=== PATIENT | male | born 1995 | race Caucasian/White ===

== ENCOUNTER 2024-08-23 00:47 | Inpatient (IN) | payer OTHER, SELFPAY ==
[2024-08-23 01:18] VITALS: BMI 37.2
[2024-08-23 01:54] VITALS: BP 124/71; PULSE 62; RESP 16; TEMP 36.5; O2SAT 97
--- NOTE | 2024-08-23 06:41 | PC.ADMIT ---
Patient is a 28 year old single Chinese speaking male admitted as a Section 12B at 0115 to M5 and placed on 5 minute safety checks. Patient was brought by EMS to [facility] ED when he was found with a rope and expressed a plan to hang himself. Apparently the mother of the patient's 9 month old son recently told him that she does not love him anymore. According to the patient's intake, the patient does not feel that his family validates or listens to his problems. He has a history of trying to hang himself three times and has been struggling with depression x 8 years. Although he has had a therapist in the past, he states he does not currently have a therapist. Patient also denied any current medications; he does not have a psychiatric provider or a PCP. During the admission process patient stated Being in the hospital makes me feel more suicidal, it doesn't really help me to be here. Patient said he did not have a rating on his depression or anxiety and denied any current SI, HI, AH or VH. He was cooperative with answering questions and cooperative with skin check, which was unremarkable. Patient has no history of substance use and does not smoke cigarettes. Patient given a tour of the unit, visitation policy explained, patient able to go to bed and sleep without any medications.
[2024-08-23 08:00] VITALS: BP 145/90; PULSE 71; RESP 18; TEMP 36.3; O2SAT 97
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
[2024-08-23 20:00] VITALS: BP 135/77; PULSE 87; RESP 16; TEMP 36.4; O2SAT 96
[2024-08-24 07:00] VITALS: BMI 37.8
[2024-08-24 08:00] VITALS: BP 130/89; PULSE 70; TEMP 36.4; O2SAT 96
[2024-08-24 09:12] LABS: Alanine Aminotransferase 61 U/L (0-40); Albumin Level 4.2 g/dL (3.5-5.0); Alkaline Phosphatase 66 U/L (39-117); Anion Gap 11 (12-20); Aspartate Amino Transferase 25 U/L (5-37); Bilirubin Total 0.4 mg/dL (0.0-1.0); Blood Urea Nitrogen 13 mg/dL (9-16); Calcium 9.5 mg/dL (8.4-10.2); Carbon Dioxide 26 mmol/L (22-29); Chloride 108 mmol/L (96-108); Cholesterol 271 mg/dL (<200); Creatinine Clr Calc Pharmacy 137.2; Estimated Glomerular Filt Rate > 60; Glucose Fasting 100 mg/dL (60-99); HDL Cholesterol 37 mg/dL (>40); LDL Cholesterol Calculated 192 mg/dL (<100); Potassium 4.3 mmol/L (3.3-5.1); Sodium 141 mmol/L (135-145); Total Protein 7.1 g/dL (6.5-8.0); Triglycerides 214 mg/dL (<150)
[2024-08-24 09:30] LABS: Thyroid Stimulating Hormone 1.08 uIU/mL (0.32-4.0)
--- NOTE | 2024-08-24 15:59 | P.PNPSI_ITS ---
Subjective Subjective Date of Service: 08/24/24 Reason For Visit: Unspecified Depression Disorder Interim History: met with pt; discussed with team pt upset; says no one cares about him or his feelings; says he's suicidal and called mom and partner to say the same. Pt very upset that his belongings did not get inventoried by specific staff, feeling the reason is because he's not cared about. [employer] Emergency Services Dispatcher tried to discuss feelings, hx of feeling rejected...Pt refuses to talk more; refuses meds; refuses to sign in. Mental Status Exam Mental Status Exam Narrative: Pt is alert and oriented; behavior is irritable, reactive, isolative; dressed in hospital attire with unkempt hair, hernandez but adequate hygiene; mood is described as depressed... Anxious and affect congruent, somewhat downcast; eye contact avoidant; Speech is normal rate, volume and prosody and not pressured; psychomotor retardation present; thought process is circumstantial but logical and organized; Thought content is self-deprecating thoughts, feeling neglected by family; otherwise pertinent to relevant topics and without any delusional content, paranoid ideations or grandiosity; chronic intermittent SI; currently no plans or intent; no HI. No AVH and There is no evidence of perceptual disturbance. Patients insight and judgment impaired Diagnostics Vital Signs (24Hr): Vital Signs - 24 hr 08/23/24 20:00 08/24/24 08:00 Temperature 97.6 F 97.6 F Pulse Rate 87 70 Respiratory Rate 16 Blood Pressure 135/77 130/89 Pulse Oximetry 96 96 Oxygen Delivery Method Room Air Room Air BMI result Body Mass Index 37.8 Labs 08/24/24 08:24 Labs: Laboratory Results - last 48 hr 08/24/24 08:24 Sodium 141 Potassium 4.3 Chloride 108 Carbon Dioxide 26 Anion Gap 11 L BUN 13 Creatinine 0.93 Estim Creat Clear Calc 137.2 Estimated GFR > 60 Fasting Glucose 100 H Calcium 9.5 Total Bilirubin 0.4 AST 25 ALT 61 H Alkaline Phosphatase 66 Total Protein 7.1 Albumin 4.2 Triglycerides 214 H Cholesterol 271 H LDL Cholesterol, Calc 192 H HDL Cholesterol 37 L TSH 1.08 Free T4 1.00 Medications Medications Current Medications Acetaminophen (Acetaminophen 325 Mg Tablet) 650 mg PO Q6H PRN PRN Reason: Headache/Pain Mild Scale (1-3) Al Hydroxide/Mg Hydroxide (Magnesium Hydrox/Alum Hydrox 30 Ml Oral.Susp) 30 ml PO Q6H PRN PRN Reason: Heartburn/Nausea Hydroxyzine HCl (Hydroxyzine Hcl 25 Mg Tablet) 25 mg PO Q6H PRN PRN Reason: Anxiety Lorazepam (Lorazepam 1 Mg Tablet) 1 mg PO Q6H PRN PRN Reason: anxiety/restlessness Magnesium Hydroxide (Milk Of Magnesia 30 Ml Oral.Susp) 30 ml PO DAILY PRN PRN Reason: Constipation Trazodone HCl (Trazodone Hcl 50 Mg Tablet) 50 mg PO BEDTIME MRX1 PRN PRN Reason: Insomnia Allergies Allergies Allergy/AdvReac Type Severity Reaction Status Date / Time No Known Allergies Allergy Verified 08/23/24 00:30 Assessment & Plan Assessment & Plan (1) MDD (major depressive disorder), recurrent severe, without psychosis: Status: Acute Code(s): F33.2 - Major depressive disorder, recurrent severe without psychotic features (2) PTSD (post-traumatic stress disorder): Status: Acute Code(s): F43.10 - Post-traumatic stress disorder, unspecified (3) Borderline personality disorder: Status: Suspected Code(s): F60.3 - Borderline personality disorder Plan Patient is a 28-year-old male, history of depression and anxiety with chronic SI, PTSD, who presents for worsening depression and SI in the face of relational strife. Patient and his partner have a 9-month-old son. Patient has been feeling marginalized and ignored by family, parents and his for quite some time. He feels that they do not have time to listen for him. Patient shares that his role growing up was to be a listening sound board for his mother; now he is so embroiled in his own mental health issues he can not be a good emotional support to his partner and thus sees no reason to live. Patient reports that over the past few weeks, his partner Neal has told him that she can not be his therapist that he needs to get his own help with his mental health. Patient felt pushed away by this and stopped going to the house and has been living in and out of his car or sometimes staying at his parent's house. He feels that whenever he tries to explain himself to his parents they just talk about their mental health problems. Patient reports ongoing thoughts of ending his life which have increase this past month. This past week he decided to end his life by hanging himself but wanted to wait until his 9-month-old son graduated from swimming class, this coming Wednesday. Patient told both his partner and his parents this plan. However past day he was feeling increasingly emotionally reactive and decided to end his life early on. He told his partner and his parents that it was going to hang himself and they knew where he was going. Patient went to a certain spot where he has gone before but did know how to tie the knot; he called neal to talk with her while he was looking up how to tie a knot and the police showed up. Patient feels that therapy has not been very helpful though he does not go consistently; has never tried any medications. Denies any history of manic type episodes or behaviors; denies any AVH; denies any substance abuse Formulation/clinical reasoning: Patient has history of depression anxiety; also sounds like borderline traits. Ironically he is frustrated that his therapist listens to him but does not offer enough specifics on coping skills. Patient initially ambivalent about medication however discussed medication management for symptoms in detail and patient feels that he probably does need them. Hospital course: 08/24 pt emotionally reactive; insisting no one cares or is willing to listen to him; demonstrating borderline traits; regressed. Says he's suicidal and called mom and partner to tell them so. refuses meds or to sign in. Does not want to talk w/ publicity writer or attend groups. Plan 12B Q 15 minute checks Patient considering medications; so far refuses Gather collateral Patient educated on: diagnosis, medication risk/benefits and therapeutic strategies Informed Consent: understands, does not understand and further education needed Reason for continued inpatient stay Substantial Risk for: rapid decompensation Time Spent With Patient Time: Total time managing care of this patient today ____ minutes.
[2024-08-24 20:00] VITALS: BP 132/72; PULSE 85; RESP 18; TEMP 36.5; O2SAT 95
[2024-08-25 08:00] VITALS: BP 128/76; PULSE 92; RESP 16; TEMP 36.6; O2SAT 98
[2024-08-25 20:00] VITALS: BP 136/80; PULSE 86; RESP 16; TEMP 36.9; O2SAT 97
--- NOTE | 2024-08-25 23:03 | P.PNPSI_ITS ---
Subjective Subjective Date of Service: 08/25/24 Reason For Visit: Unspecified Depression Disorder Interim History: met with pt; discussed with team pt remains emotionally distraught but now willing to engage. Engaged in DBT/CBT. Pt volunteers that knows he's stuck in cycle of being a victim, blaming others for his problems...says he learned as a kid that only if he exaggerates his feelings will others listen to him. Pt says he does not want to , has no plans to hurt himself, but he says such things to elicit a response. Pt says he intellectually knows these things, but cannot seem to stop himself from feeling this way. Diagnostics Vital Signs (24Hr): Vital Signs - 24 hr 08/25/24 08:00 Temperature 98 F Pulse Rate 92 Respiratory Rate 16 Blood Pressure 128/76 Pulse Oximetry 98 BMI result Body Mass Index 37.8 Labs 08/24/24 08:24 Labs: Laboratory Results - last 48 hr 08/24/24 08:24 Sodium 141 Potassium 4.3 Chloride 108 Carbon Dioxide 26 Anion Gap 11 L BUN 13 Creatinine 0.93 Estim Creat Clear Calc 137.2 Estimated GFR > 60 Fasting Glucose 100 H Calcium 9.5 Total Bilirubin 0.4 AST 25 ALT 61 H Alkaline Phosphatase 66 Total Protein 7.1 Albumin 4.2 Triglycerides 214 H Cholesterol 271 H LDL Cholesterol, Calc 192 H HDL Cholesterol 37 L TSH 1.08 Free T4 1.00 Medications Medications Current Medications Acetaminophen (Acetaminophen 325 Mg Tablet) 650 mg PO Q6H PRN PRN Reason: Headache/Pain Mild Scale (1-3) Al Hydroxide/Mg Hydroxide (Magnesium Hydrox/Alum Hydrox 30 Ml Oral.Susp) 30 ml PO Q6H PRN PRN Reason: Heartburn/Nausea Hydroxyzine HCl (Hydroxyzine Hcl 25 Mg Tablet) 25 mg PO Q6H PRN PRN Reason: Anxiety Magnesium Hydroxide (Milk Of Magnesia 30 Ml Oral.Susp) 30 ml PO DAILY PRN PRN Reason: Constipation Trazodone HCl (Trazodone Hcl 50 Mg Tablet) 50 mg PO BEDTIME MRX1 PRN PRN Reason: Insomnia Allergies Allergies Allergy/AdvReac Type Severity Reaction Status Date / Time No Known Allergies Allergy Verified 08/23/24 00:30 Assessment & Plan Assessment & Plan (1) MDD (major depressive disorder), recurrent severe, without psychosis: Status: Acute Code(s): F33.2 - Major depressive disorder, recurrent severe without psychotic features (2) PTSD (post-traumatic stress disorder): Status: Acute Code(s): F43.10 - Post-traumatic stress disorder, unspecified (3) Borderline personality disorder: Status: Suspected Code(s): F60.3 - Borderline personality disorder Plan Patient is a 28-year-old male, history of depression and anxiety with chronic SI, PTSD, who presents for worsening depression and SI in the face of relational strife. Patient and his partner have a 9-month-old son. Patient has been feeling marginalized and ignored by family, parents and his for quite some time. He feels that they do not have time to listen for him. Patient shares that his role growing up was to be a listening sound board for his mother; now he is so embroiled in his own mental health issues he can not be a good emotional support to his partner and thus sees no reason to live. Patient reports that over the past few weeks, his partner Neal has told him that she can not be his therapist that he needs to get his own help with his mental health. Patient felt pushed away by this and stopped going to the house and has been living in and out of his car or sometimes staying at his parent's house. He feels that whenever he tries to explain himself to his parents they just talk about their mental health problems. Patient reports ongoing thoughts of ending his life which have increase this past month. This past week he decided to end his life by hanging himself but wanted to wait until his 9-month-old son graduated from swimming class, this coming Wednesday. Patient told both his partner and his parents this plan. However past day he was feeling increasingly emotionally reactive and decided to end his life early on. He told his partner and his parents that it was going to hang himself and they knew where he was going. Patient went to a certain spot where he has gone before but did know how to tie the knot; he called neal to talk with her while he was looking up how to tie a knot and the police showed up. Patient feels that therapy has not been very helpful though he does not go consistently; has never tried any medications. Denies any history of manic type episodes or behaviors; denies any AVH; denies any substance abuse Formulation/clinical reasoning: Patient has history of depression anxiety; also sounds like borderline traits. Ironically he is frustrated that his therapist listens to him but does not offer enough specifics on coping skills. Patient initially ambivalent about medication however discussed medication management for symptoms in detail and patient feels that he probably does need them. Hospital course: 08/24 pt emotionally reactive; insisting no one cares or is willing to listen to him; demonstrating borderline traits; regressed. Says he's suicidal and called mom and partner to tell them so. refuses meds or to sign in. Does not want to talk w/ commercial lines underwriter or attend groups. 08/25 pt remains emotionally distraught but now willing to engage. Engaged in DBT/CBT. Pt volunteers that knows he's stuck in cycle of being a victim, blaming others for his problems...says he learned as a kid that only if he exaggerates his feelings will others listen to him. Pt says he does not want to , has no plans to hurt himself, but he says such things to elicit a response. Pt says he intellectually knows these things, but cannot seem to stop himself from feeling this way. Says it' sbeen this way for him since childhood; pt shared about childhood, relationships, other hx -reviewed traits of BPD most of which resonated with patient -still does not want medications, though willing to discuss Plan 12B Q 15 minute checks Patient considering medications; so far refuses Gather collateral Patient educated on: diagnosis, medication risk/benefits and therapeutic strategies Informed Consent: understands Reason for continued inpatient stay Substantial Risk for: rapid decompensation Time Spent With Patient Time: Total time managing care of this patient today ____ minutes.
[2024-08-26 08:00] VITALS: BP 125/82; PULSE 86; RESP 16; TEMP 36.9; O2SAT 96
--- NOTE | 2024-08-26 09:04 | P.PNPSI_ITS ---
Subjective Subjective Date of Service: 08/26/24 Reason For Visit: Unspecified Depression Disorder Interim History: met with patient; discussed with team elisabet; thankful for exercise yesterday and pt reviewed DSM criteria for borderline personality disorder saying he resonates with all symptoms. He shares his plan to move to [place]; he feels he cannot progress if he's around his parents and Partner, feeling too hurt and too triggered by them. Window Tinter discussed that his problems will follow him which he says he understands. Declines medication. Wants to DC wednesday. Denies any SI. Mental Status Exam Mental Status Exam Narrative: Pt is alert and oriented; behavior is cooperative, calm; dressed in hospital attire with unkempt hair, hernandez but adequate hygiene; mood is described as depressed and affect congruent, somewhat downcast; eye contact adequate; Speech is normal rate, volume and prosody and not pressured; some psychomotor retardation present; thought process is circumstantial but logical and organized; Thought content on feeling neglected by family; otherwise pertinent to relevant topics and without any delusional content, paranoid ideations or grandiosity; denies any SI/HI. No AVH and There is no evidence of perceptual disturbance. Patients insight and judgment impaired but adequate. Diagnostics Vital Signs (24Hr): Vital Signs - 24 hr 08/25/24 20:00 08/26/24 08:00 Temperature 98.5 F 98.5 F Pulse Rate 86 86 Respiratory Rate 16 16 Blood Pressure 136/80 125/82 Pulse Oximetry 97 96 Oxygen Delivery Method Room Air Room Air BMI result Body Mass Index 37.8 Labs 08/24/24 08:24 Labs: Laboratory Results - last 48 hr 08/24/24 08:24 Sodium 141 Potassium 4.3 Chloride 108 Carbon Dioxide 26 Anion Gap 11 L BUN 13 Creatinine 0.93 Estim Creat Clear Calc 137.2 Estimated GFR > 60 Fasting Glucose 100 H Calcium 9.5 Total Bilirubin 0.4 AST 25 ALT 61 H Alkaline Phosphatase 66 Total Protein 7.1 Albumin 4.2 Triglycerides 214 H Cholesterol 271 H LDL Cholesterol, Calc 192 H HDL Cholesterol 37 L TSH 1.08 Free T4 1.00 Medications Medications Current Medications Acetaminophen (Acetaminophen 325 Mg Tablet) 650 mg PO Q6H PRN PRN Reason: Headache/Pain Mild Scale (1-3) Al Hydroxide/Mg Hydroxide (Magnesium Hydrox/Alum Hydrox 30 Ml Oral.Susp) 30 ml PO Q6H PRN PRN Reason: Heartburn/Nausea Hydroxyzine HCl (Hydroxyzine Hcl 25 Mg Tablet) 25 mg PO Q6H PRN PRN Reason: Anxiety Magnesium Hydroxide (Milk Of Magnesia 30 Ml Oral.Susp) 30 ml PO DAILY PRN PRN Reason: Constipation Trazodone HCl (Trazodone Hcl 50 Mg Tablet) 50 mg PO BEDTIME MRX1 PRN PRN Reason: Insomnia Allergies Allergies Allergy/AdvReac Type Severity Reaction Status Date / Time No Known Allergies Allergy Verified 08/23/24 00:30 Assessment & Plan Assessment & Plan (1) MDD (major depressive disorder), recurrent severe, without psychosis: Status: Acute Code(s): F33.2 - Major depressive disorder, recurrent severe without psychotic features (2) Borderline personality disorder: Status: Suspected Code(s): F60.3 - Borderline personality disorder (3) PTSD (post-traumatic stress disorder): Status: Acute Code(s): F43.10 - Post-traumatic stress disorder, unspecified Plan Patient is a 28-year-old male, history of depression and anxiety with chronic SI, PTSD, who presents for worsening depression and SI in the face of relational strife. Patient and his partner have a 9-month-old son. Patient has been feeling marginalized and ignored by family, parents and his for quite some time. He feels that they do not have time to listen for him. Patient shares that his role growing up was to be a listening sound board for his mother; now he is so embroiled in his own mental health issues he can not be a good emotional support to his partner and thus sees no reason to live. Patient reports that over the past few weeks, his partner Neal has told him that she can not be his therapist that he needs to get his own help with his mental health. Patient felt pushed away by this and stopped going to the house and has been living in and out of his car or sometimes staying at his parent's house. He feels that whenever he tries to explain himself to his parents they just talk about their mental health problems. Patient reports ongoing thoughts of ending his life which have increase this past month. This past week he decided to end his life by hanging himself but wanted to wait until his 9-month-old son graduated from swimming class, this coming Wednesday. Patient told both his partner and his parents this plan. However past day he was feeling increasingly emotionally reactive and decided to end his life early on. He told his partner and his parents that it was going to hang himself and they knew where he was going. Patient went to a certain spot where he has gone before but did know how to tie the knot; he called neal to talk with her while he was looking up how to tie a knot and the police showed up. Patient feels that therapy has not been very helpful though he does not go consistently; has never tried any medications. Denies any history of manic type episodes or behaviors; denies any AVH; denies any substance abuse Formulation/clinical reasoning: Patient has history of depression anxiety; also sounds like borderline traits. Ironically he is frustrated that his therapist listens to him but does not offer enough specifics on coping skills. Patient initially ambivalent about medication however discussed medication management for symptoms in detail and patient feels that he probably does need them. Hospital course: 08/24 pt emotionally reactive; insisting no one cares or is willing to listen to him; demonstrating borderline traits; regressed. Says he's suicidal and called mom and partner to tell them so. refuses meds or to sign in. Does not want to talk w/ administrative underwriter or attend groups. 08/25 pt remains emotionally distraught but now willing to engage. Engaged in DBT/CBT. Pt volunteers that knows he's stuck in cycle of being a victim, blaming others for his problems...says he learned as a kid that only if he exaggerates his feelings will others listen to him. Pt says he does not want to , has no plans to hurt himself, but he says such things to elicit a response. Pt says he intellectually knows these things, but cannot seem to stop himself from feeling this way. Says it' sbeen this way for him since childhood; pt shared about childhood, relationships, other hx -reviewed traits of BPD most of which resonated with patient -still does not want medications, though willing to discuss 08/26 depressed but no SI which remains resolved (he explains he was never going to hurt himself but just said so to get reaction). Pt understands his illness and wants to get DBT therapist when he moves to [place] (his new plan). -does not want meds; asking for Discharge. Will continue to monitor and as remains stable will honor dc request Plan 12B Q 15 minute checks Patient considering medications; so far refuses Gather collateral Patient educated on: diagnosis, medication risk/benefits and therapeutic strategies Informed Consent: understands Reason for continued inpatient stay Substantial Risk for: rapid decompensation Time Spent With Patient Time: Total time managing care of this patient today ____ minutes.
[2024-08-26 20:00] VITALS: BP 140/67; PULSE 111; RESP 16; TEMP 37.1
[2024-08-26 22:46] VITALS: TEMP 36.6
[2024-08-27 07:46] VITALS: BP 139/69; PULSE 93; RESP 16; TEMP 36.6; O2SAT 95
--- NOTE | 2024-08-27 10:14 | P.PNPSI_ITS ---
Subjective Subjective Date of Service: 08/27/24 Reason For Visit: Unspecified Depression Disorder Interim History: Met with patient; discussed with team Patient overall feeling better. Little more optimistic. Patient had good discussion with his mother about his diagnosis and found her very sympathetic and supportive. Asked if chief underwriter would talk with his mother. Aircraft Maintenance Instructor did speak with his mother who was grateful for help received and wanted to discuss aftercare. Patient no longer convinced he is going to [place]; says he wants to remain on the unit only to get help with aftercare set up, specifically DBT but finds the unit acuity to be challenging. Will consider whether not to sign in. Denies any SI Mental Status Exam Mental Status Exam Narrative: Pt is alert and oriented; behavior is cooperative, calm; dressed in hospital attire with unkempt hair, hernandez but adequate hygiene; mood is described as okay and affect congruent, a little brighter; eye contact adequate; Speech is normal rate, volume and prosody and not pressured; no psychomotor retardation present; thought process is circumstantial but logical and organized; Thought content on dealing with symptoms, treatment, working on his issue; otherwise pertinent to relevant topics and without any delusional content, paranoid ideations or grandiosity; denies any SI/HI. No AVH and There is no evidence of perceptual disturbance. Patients insight and judgment improved; fair and adequate. Diagnostics Vital Signs (24Hr): Vital Signs - 24 hr 08/26/24 20:00 08/26/24 22:46 08/27/24 07:46 Temperature 98.8 F 97.9 F 97.9 F Pulse Rate 111 H 93 Respiratory Rate 16 16 Blood Pressure 140/67 H 139/69 Pulse Oximetry 95 Oxygen Delivery Method Room Air Room Air BMI result Body Mass Index 37.8 Labs 08/24/24 08:24 Medications Medications Current Medications Acetaminophen (Acetaminophen 325 Mg Tablet) 650 mg PO Q6H PRN PRN Reason: Headache/Pain Mild Scale (1-3) Al Hydroxide/Mg Hydroxide (Magnesium Hydrox/Alum Hydrox 30 Ml Oral.Susp) 30 ml PO Q6H PRN PRN Reason: Heartburn/Nausea Hydroxyzine HCl (Hydroxyzine Hcl 25 Mg Tablet) 25 mg PO Q6H PRN PRN Reason: Anxiety Magnesium Hydroxide (Milk Of Magnesia 30 Ml Oral.Susp) 30 ml PO DAILY PRN PRN Reason: Constipation Trazodone HCl (Trazodone Hcl 50 Mg Tablet) 50 mg PO BEDTIME MRX1 PRN PRN Reason: Insomnia Allergies Allergies Allergy/AdvReac Type Severity Reaction Status Date / Time No Known Allergies Allergy Verified 08/23/24 00:30 Assessment & Plan Assessment & Plan (1) MDD (major depressive disorder), recurrent severe, without psychosis: Status: Acute Code(s): F33.2 - Major depressive disorder, recurrent severe without psychotic features (2) Borderline personality disorder: Status: Suspected Code(s): F60.3 - Borderline personality disorder (3) PTSD (post-traumatic stress disorder): Status: Acute Code(s): F43.10 - Post-traumatic stress disorder, unspecified Plan Patient is a 28-year-old male, history of depression and anxiety with chronic SI, PTSD, who presents for worsening depression and SI in the face of relational strife. Patient and his partner have a 9-month-old son. Patient has been feeling marginalized and ignored by family, parents and his for quite some time. He feels that they do not have time to listen for him. Patient shares that his role growing up was to be a listening sound board for his mother; now he is so embroiled in his own mental health issues he can not be a good emotional support to his partner and thus sees no reason to live. Patient reports that over the past few weeks, his partner Neal has told him that she can not be his therapist that he needs to get his own help with his mental health. Patient felt pushed away by this and stopped going to the house and has been living in and out of his car or sometimes staying at his parent's house. He feels that whenever he tries to explain himself to his parents they just talk about their mental health problems. Patient reports ongoing thoughts of ending his life which have increase this past month. This past week he decided to end his life by hanging himself but wanted to wait until his 9-month-old son graduated from [employer] class, this coming Wednesday. Patient told both his partner and his parents this plan. However past day he was feeling increasingly emotionally reactive and decided to end his life early on. He told his partner and his parents that it was going to hang himself and they knew where he was going. Patient went to a certain spot where he has gone before but did know how to tie the knot; he called neal to talk with her while he was looking up how to tie a knot and the police showed up. Patient feels that therapy has not been very helpful though he does not go consistently; has never tried any medications. Denies any history of manic type episodes or behaviors; denies any AVH; denies any substance abuse Formulation/clinical reasoning: Patient has history of depression anxiety; also sounds like borderline traits. Ironically he is frustrated that his therapist listens to him but does not offer enough specifics on coping skills. Patient initially ambivalent about medication however discussed medication management for symptoms in detail and patient feels that he probably does need them. Hospital course: 08/24 pt emotionally reactive; insisting no one cares or is willing to listen to him; demonstrating borderline traits; regressed. Says he's suicidal and called mom and partner to tell them so. refuses meds or to sign in. Does not want to talk w/ chief underwriter or attend groups. 08/25 pt remains emotionally distraught but now willing to engage. Engaged in DBT/CBT. Pt volunteers that knows he's stuck in cycle of being a victim, blaming others for his problems...says he learned as a kid that only if he exaggerates his feelings will others listen to him. Pt says he does not want to , has no plans to hurt himself, but he says such things to elicit a response. Pt says he intellectually knows these things, but cannot seem to stop himself from feeling this way. Says it' sbeen this way for him since childhood; pt shared about childhood, relationships, other hx -reviewed traits of BPD most of which resonated with patient -still does not want medications, though willing to discuss 08/26 depressed but no SI which remains resolved (he explains he was never going to hurt himself but just said so to get reaction). Pt understands his illness and wants to get DBT therapist when he moves to [place] (his new plan). -does not want meds; asking for Discharge. Will continue to monitor and as remains stable will honor dc request 08/27 Patient overall feeling better. Little more optimistic. Patient had good discussion with his mother about his diagnosis and found her very sympathetic and supportive. Asked if chief underwriter would talk with his mother. Aircraft Maintenance Instructor did speak with his mother who was grateful for help received and wanted to discuss aftercare. Patient no longer convinced he is going to [place]; says he wants to remain on the unit only to get help with aftercare set up, specifically DBT but finds the unit acuity to be challenging. Will consider whether not to sign in. Denies any SI -also interested in IOP Plan 12B Q 15 minute checks Patient considering medications; so far refuses Gather collateral Patient educated on: diagnosis and therapeutic strategies Informed Consent: understands Reason for continued inpatient stay Substantial Risk for: stable for discharge Time Spent With Patient Time: Total time managing care of this patient today ____ minutes.
[2024-08-27 20:00] VITALS: BP 142/80; PULSE 76; RESP 16; TEMP 37.7; O2SAT 97
[2024-08-27 20:25] LABS: Influenza A PCR NEGATIVE (Negative); Influenza B PCR NEGATIVE (Negative); Resp Syncy Virus RNA Qual PCR NEGATIVE (Negative); SARS COV2 PCR INHOUSE NEGATIVE (Negative)
--- NOTE | 2024-08-27 23:35 | PC.NURSE ---
Pt c/o fever and cough, temperature reads 101, P-76, BP- 142/80. COVID and FLU test done and result was negative. Temp rechecked @ 2300 reads 98.8 and he verbalized reduced cough.
[2024-08-28 08:00] VITALS: BP 116/51; PULSE 94; RESP 16; TEMP 36.5; O2SAT 99
--- NOTE | 2024-08-28 09:08 | PM.PSYDC ---
DS: Providers Provider Date of Service: 08/28/24 Date of admission: 08/23/24 00:47 Date of discharge: 08/28/24 Primary care physician: Karol Mckeon DO Attending physician on admission: Roc Holloway Consults: 08/23/24 00:30 Consult to Hospitalist Routine Comment: Consulting Provider: Hospitalist Reason For Exam: adm physical Attending physician on discharge: Roc Holloway DS: Diagnosis Discharge Diagnosis (1) MDD (major depressive disorder), recurrent severe, without psychosis: Status: Acute (2) Borderline personality disorder: Status: Suspected (3) PTSD (post-traumatic stress disorder): Status: Acute DS: Medications Discharge Medications Home Medications: Home Medications ?Medication ?Instructions ?Recorded ?Confirmed No Known Home Meds 08/23/24 08/23/24 Mental Status Exam Mental Status Exam Narrative: Pt is alert and oriented; behavior is cooperative, calm; unkempt hair, hernandez but adequate hygiene; mood is described as okay and affect congruent, brighter; eye contact adequate; Speech is normal rate, volume and prosody and not pressured; no psychomotor retardation present; thought process is circumstantial but logical and organized; Thought content on dealing with symptoms, treatment, working on his issues; otherwise pertinent to relevant topics and without any delusional content, paranoid ideations or grandiosity; denies any SI/HI. No AVH and There is no evidence of perceptual disturbance. Patients insight and judgment improved; fair and adequate. Data Data Completed and Pending Completed studies during hospitalization [Text1]: 08/24/24 08/27/24 08:24 19:20 Sodium 141 Potassium 4.3 Chloride 108 Carbon Dioxide 26 Anion Gap 11 L BUN 13 Creatinine 0.93 Estim Creat Clear Calc 137.2 Estimated GFR > 60 Fasting Glucose 100 H Calcium 9.5 Total Bilirubin 0.4 AST 25 ALT 61 H Alkaline Phosphatase 66 Total Protein 7.1 Albumin 4.2 Triglycerides 214 H Cholesterol 271 H LDL Cholesterol, Calc 192 H HDL Cholesterol 37 L TSH 1.08 Free T4 1.00 Influenza Type A (PCR) NEGATIVE Influenza Type B (PCR) NEGATIVE RSV RNA Qual (PCR) NEGATIVE SARS-CoV-2 RNA (RT-PCR) NEGATIVE DS: Summary Hospital Course Hospital Course: Patient is a 28-year-old male, history of depression and anxiety with chronic SI, PTSD, who presents for worsening depression and SI in the face of relational strife. Patient and his partner have a 9-month-old son. Patient has been feeling marginalized and ignored by family, parents and his for quite some time. He feels that they do not have time to listen for him. Patient shares that his role growing up was to be a listening sound board for his mother; now he is so embroiled in his own mental health issues he can not be a good emotional support to his partner and thus sees no reason to live. Patient reports that over the past few weeks, his partner Neal has told him that she can not be his therapist that he needs to get his own help with his mental health. Patient felt pushed away by this and stopped going to the house and has been living in and out of his car or sometimes staying at his parent's house. He feels that whenever he tries to explain himself to his parents they just talk about their mental health problems. Patient reports ongoing thoughts of ending his life which have increase this past month. This past week he decided to end his life by hanging himself but wanted to wait until his 9-month-old son graduated from [employer] class, this coming Wednesday. Patient told both his partner and his parents this plan. However past day he was feeling increasingly emotionally reactive and decided to end his life early on. He told his partner and his parents that it was going to hang himself and they knew where he was going. Patient went to a certain spot where he has gone before but did know how to tie the knot; he called neal to talk with her while he was looking up how to tie a knot and the police showed up. Patient feels that therapy has not been very helpful though he does not go consistently; has never tried any medications. Denies any history of manic type episodes or behaviors; denies any AVH; denies any substance abuse Formulation/clinical reasoning: Patient has history of depression anxiety; also sounds like borderline traits. Ironically he is frustrated that his therapist listens to him but does not offer enough specifics on coping skills. Patient initially ambivalent about medication however discussed medication management for symptoms in detail and patient feels that he probably does need them. Hospital course: 08/24 pt emotionally reactive; insisting no one cares or is willing to listen to him; demonstrating borderline traits; regressed. Says he's suicidal and called mom and partner to tell them so. refuses meds or to sign in. Does not want to talk w/ process description writer or attend groups. 08/25 pt remains emotionally distraught but now willing to engage. Engaged in DBT/CBT. Pt volunteers that knows he's stuck in cycle of being a victim, blaming others for his problems...says he learned as a kid that only if he exaggerates his feelings will others listen to him. Pt says he does not want to , has no plans to hurt himself, but he says such things to elicit a response. Pt says he intellectually knows these things, but cannot seem to stop himself from feeling this way. Says it' sbeen this way for him since childhood; pt shared about childhood, relationships, other hx -reviewed traits of BPD most of which resonated with patient -still does not want medications, though willing to discuss 08/26 depressed but no SI which remains resolved (he explains he was never going to hurt himself but just said so to get reaction). Pt understands his illness and wants to get DBT therapist when he moves to [place] (his new plan). -does not want meds; asking for Discharge. Will continue to monitor and as remains stable will honor dc request 08/27 Patient overall feeling better. Little more optimistic. Patient had good discussion with his mother about his diagnosis and found her very sympathetic and supportive. Asked if process description writer would talk with his mother. Advertising Sales Executive did speak with his mother who was grateful for help received and wanted to discuss aftercare. Patient no longer convinced he is going to [place]; says he wants to remain on the unit only to get help with aftercare set up, specifically DBT but finds the unit acuity to be challenging. Will consider whether not to sign in. Denies any SI -also interested in IOP Patient is doing better and at or above baseline. Patient's insight and judgment have significantly improved and he feels some relief from having a way to talk about his struggles. Patient is also found his mother very supportive. Patient has been on a [address]; the time is up and patient wants to discharge. Patient remains depressed but much less so and he is more hopeful; his affect is noticeably brighter, smiling at times, laughing at times and now social in the milieu with peers. He has remained without any actual SI and has explained that he was never going to hurt himself and has no history of self-harm. He is returning home to live with his parents. Although patient declined medication trials, he plans to continue with his outpatient therapist; patient is eager to add DBT therapy to his treatment and says he will pursue on his own. Patient has remained in safe behaviors and in good impulse control throughout his time in the unit and been appropriate with peers and staff. He is not in imminent risk for harm self or others and request for discharge honored. Time spent discussing smoking cessation with patient: 3 to 10 minutes Status at Discharge Functional status at discharge: independent ambulation Overall status at discharge: patient is back to baseline Time Spent with Patient Time attestation: Total time managing care of this patient today _40___ minutes. Time spent: Greater than 30 minutes Specific discharge activities: Met with patient; discussed with team; charting Discharge Plan Discharge Anticipated Discharge Date/Time: 08/28/24 11:30 Patient Disposition: Home, Self-Care Discharge Diagnosis: MDD, recurrent, severe in partial remission; Borderline personality disorder Referrals: [facility]- Walk In [Other] - 1 Week (If you need immediate help, [facility] offers walk-in crisis services at the the location listed) [facility] (Therapy) [Other] - 1 Week (If you have not heard about appointments in one week, please call the number listed to inquire about appointments ) Karol Pierce, [Primary Care Provider] - 1 Week Discharge Medications: No Action No Known Home Meds Discharge Orders: Discharge Order (Routine); Ordered 08/28/24 Ordered By: Roc Holloway Diet: Regular diet Activity on Discharge: As tolerated Stand Alone Forms: Patient Portal Discharge page Print Language: Bahamian Care Plan Goals: Maintain mood and safe behaviors Practice coping skills Continue with outpatient providers and reach out to them as needed Health Concerns: Mood stability and behaviors Plan of Treatment: Follow up with your PCP, psychiatric provider and other outpatient providers regarding above concerns Take medications as prescribed Assessment: Risk assessment at time of discharge:? Patient was interviewed prior to discharge and found to be fully oriented and without any SI or HI. Patient has improved insight and judgment and wants to continue treatment. Patient is not in imminent risk of harm to self or others and has a safety plan that includes presenting to the closest ER or calling 911 if feeling unsafe.? Patient has been observed closely by nursing and unit staff throughout admission; patient has not engaged in any behaviors that suggest dangerousness to self or others and has demonstrated appropriate behaviors and impulse control
== END 2024-08-28 11:56 | disposition home or self-care (01) | DRG 751 ==
PROVIDERS: Psychiatry & Neurology Psychiatry; Admitting Provider Psychiatry & Neurology Psychiatry; PCP Internal Medicine; Visit Provider Psychiatry & Neurology Psychiatry
DX: F33.2 Major depressive disorder, recurrent severe without psychotic features (principal); R45.851 Suicidal ideations; F43.10 Post-traumatic stress disorder, unspecified; F60.3 Borderline personality disorder; Z20.822 Contact with and (suspected) exposure to COVID-19
CPT/HCPCS: 0241U; 36415; 80053; 80061; 84439; 84443

== ENCOUNTER → 2024-08-23 00:47 | Outpatient (BNV) | payer OTHER, SELFPAY | PROVIDERS: Admitting Provider Psychiatry & Neurology Psychiatry; PCP Internal Medicine; Visit Provider Student in an Organized Health Care Education/Training Program | DX: Z02.2 Encounter for examination for admission to residential institution (principal) | CPT/HCPCS: 99429 ==

== ENCOUNTER → 2024-08-23 00:47 | Outpatient (BNV) | payer OTHER, SELFPAY | PROVIDERS: Admitting Provider Psychiatry & Neurology Psychiatry; PCP Internal Medicine; Visit Provider Psychiatry & Neurology Psychiatry | DX: F60.3 Borderline personality disorder (principal); F33.2 Major depressive disorder, recurrent severe without psychotic features; F43.11 Post-traumatic stress disorder, acute | CPT/HCPCS: 99231; 99232 ==